=== PATIENT | male | born 1995 | race African-American/Black ===

== ENCOUNTER 2020-07-31 09:37 | Emergency (ER) | payer OTHER ==
[~2020-07-31] VITALS: Ht 177.8 cm; Wt 93.2 kg
--- NOTE | 2020-07-31 10:24 | REP ---
INDICATION: trauma, decreased ROM COMPARISON: None. TECHNIQUE: AP, lateral, bilateral oblique and sunrise views. 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 No obvious acute fracture. Small calcifications in the tibiofemoral joint space cannot be excluded. Small effusion cannot be excluded. 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 No obvious acute fracture or dislocation. <Electronically signed by Dayton Childress > 07/31/20 1021
[2020-07-31] MEDS ORDERED: KETOROLAC TROMETHAMINE 10 MG TAB PO ONE (11:30)
[2020-07-31 11:49] VITALS: BP 127/70
== END 2020-07-31 11:51 | disposition home or self-care (01) ==
LOC: M ED 09:37
DX: S89.91XA Unspecified injury of right lower leg, initial encounter (principal); X50.1XXA Overexertion from prolonged static or awkward postures, initial encounter; Y92.89 Other specified places as the place of occurrence of the external cause; Y93.62 Activity, american flag or touch football; Y99.1 Military activity; M17.11 Unilateral primary osteoarthritis, right knee

== ENCOUNTER 2022-05-30 13:51 | Emergency (ER) | payer OTHER ==
[~2022-05-30] VITALS: Ht 172.7 cm; Wt 98.8 kg
[2022-05-30 13:51] VITALS: BP 143/67
== END 2022-05-30 14:50 | disposition home or self-care (01) ==
LOC: M ED 13:51
DX: S93.402A Sprain of unspecified ligament of left ankle, initial encounter (principal); X50.1XXA Overexertion from prolonged static or awkward postures, initial encounter; Y99.1 Military activity

== ENCOUNTER 2022-10-30 23:40 | Emergency (ER) | payer OTHER ==
[~2022-10-30] VITALS: Ht 172.7 cm; Wt 102.3 kg
[2022-10-31 00:10] VITALS: TEMP 98
[2022-10-31 00:30] LABS: BASO % 0.7 % (0.0-1.0); EOS # 0.1 10^3/uL (0.0-0.5); EOS % 2.1 % (0.0-3.0); HEMOGLOBIN 15.7 g/dl (13.5-17.5); LYMPH # 2.3 10^3/uL (1.5-5.0); LYMPH % 53.2 % (24.0-44.0); MEAN CORPUSCULAR HEMOGLOBIN 30.2 pg (27.0-33.0); MEAN CORPUSCULAR HGB CONC 34.9 g/dl (32.0-36.5); MEAN CORPUSCULAR VOLUME 86.5 fl (80.0-96.0); MONO # 0.4 10^3/uL (0.0-0.8); MONO % 9.4 % (2.0-8.0); NEUTROPHILS # 1.5 10^3/uL (1.5-8.5); NEUTROPHILS % 34.4 % (36.0-66.0); PLATELET COUNT, AUTOMATED 192 10^3/uL (150-450); WHITE BLOOD COUNT 4.3 10^3/uL (4.0-10.0)
[2022-10-31 00:50] LABS: BLOOD UREA NITROGEN 19 MG/DL (9-23); CALCIUM LEVEL 9.7 MG/DL (8.5-10.1); CARBON DIOXIDE LEVEL 27 MMOL/L (20-31); CHLORIDE LEVEL 103 MMOL/L (98-107); CK-MB VALUE MASS < 1.0 NG/ML (<3.6); CREATININE FOR GFR 0.99 MG/DL (0.70-1.30); GLOMERULAR FILTRATION RATE > 60.0 (>60); GLUCOSE, FASTING 96 MG/DL (60-100); POTASSIUM SERUM 3.9 MMOL/L (3.5-5.1); SODIUM LEVEL 138 MMOL/L (136-145)
[2022-10-31] MEDS ORDERED: KETOROLAC 30 MG/ML 1ML VIAL IV ONE (00:55)
[2022-10-31] MEDS ORDERED: NS 1,000 ML IV ONE (00:55)
[2022-10-31 01:12] LABS: CPK CREATINE PHOSPHOKINASE 461 U/L (46-171); MB/CK RELATIVE INDEX 0.21 (< OR =4)
[2022-10-31 01:37] LABS: CK-MB VALUE MASS 1.6 NG/ML (<3.6)
[2022-10-31 01:39] LABS: CPK CREATINE PHOSPHOKINASE 421 U/L (46-171); MB/CK RELATIVE INDEX 0.38 (< OR =4)
[2022-10-31 03:30] VITALS: BP 123/78
[2022-10-31] MEDS ORDERED: NAPR-837 PO (03:41)
[2022-10-31 03:45] VITALS: O2SAT 100
== END 2022-10-31 03:45 | disposition home or self-care (01) ==
LOC: EDBD 23:40 → M ED 23:40
DX: R07.89 Other chest pain (principal)
CPT/HCPCS: 71045; 80048; 82550; 82553; 84484; 85025; 85379; 93005; 93041; 94760; 96374; 99285; J1885